=== PATIENT | female | born 1965 | race Two or more races ===

== ENCOUNTER 2017-06-05 21:24 | Emergency (ER) | payer OTHER ==
[~2017-06-05] VITALS: Ht 157.5 cm; Wt 55.5 kg
[~2017-06-05 21:24] MED LIST: CLON1TAB PO; GABA-585 PO; HYDROCONE; INDO25OR PO; MONT10TA9 PO; SIME125T17 PO; TOLT1TAB2 PO; hydrocodone
[2017-06-05 21:30] VITALS: BP 160/72
[2017-06-05] MEDS ORDERED: DEXAMETHASONE 4 MG TABLET PO ONE (23:00)
[2017-06-05] MEDS ORDERED: PROMETH/CODEINE 6.25/10MG 5 ML SYRUP. PO ONE (23:00)
[2017-06-05] MEDS ORDERED: DEXT15LI7 PO (23:28)
[2017-06-05] MEDS ORDERED: BENZ100C PO (23:28)
--- NOTE | 2017-06-05 23:29 | PHYS DOC ---
Past History Past Medical History: Anxiety, Depression, GERD Past Surgical History: Cholecystectomy, Hysterectomy Smoking: Non-smoker Alcohol Use: None Drug Use: None Adult General Chief Complaint Chief Complaint: COUGH HPI HPI Patient is a 52-year-old female who presents with complaints of nonproductive cough and shortness of breath that started when she had a coughing fit prior to arrival to the emergency department. Patient denies pain anywhere else. Patient may have had some sick contacts. Patient denies any fevers, rashes, chills, swelling. Review of Systems Review of Systems Constitutional: Denies fever or chills [] Eyes: Denies change in visual acuity, redness, or eye pain [] HENT: As per history of present illness Respiratory: As per history of present illness Cardiovascular: No chest pain GI: Denies abdominal pain, nausea, vomiting, Musculoskeletal: Denies back pain or joint pain [] Integument: Denies rash or skin lesions [] Neurologic: Denies headache, focal weakness or sensory changes [] All other systems were reviewed and found to be within normal limits, except as documented in this note. Current Medications Current Medications Current Medications Medications (Trade) Dose Ordered Sig/Tati Start Time Stop Time Status Last Admin Dose Admin Dexamethasone (Decadron) 8 mg 1X ONCE 06/05/17 23:00 06/05/17 23:01 DC 06/05/17 22:48 8 MG Promethazine HCl/ Codeine (Phenergan With Codeine) 5 ml 1X ONCE 06/05/17 23:00 06/05/17 23:01 DC 06/05/17 22:49 5 ML Allergies Allergies Allergies Coded Allergies Type Severity Reaction Last Updated Verified iodine Allergy Severe BLISTERS 10/14/15 Yes adhesive tape Allergy Intermediate Rash 12/01/15 Yes Penicillins Allergy Mild rash 11/01/13 No Physical Exam Physical Exam Constitutional: Well developed, well nourished, no acute distress, non-toxic appearance. [] HENT: Normocephalic, atraumatic, bilateral external ears normal, oropharynx moist, no oral exudates, nose normal. Airways patent, no drooling Eyes:EOMI, conjunctiva normal, no discharge. [] Neck: Normal range of motion, no tenderness, supple, no stridor. No LAD, no meningeal signs Cardiovascular:Heart rate regular rhythm, no murmur, normal perfusion Lungs & Thorax: Bilateral breath sounds clear to auscultation on no tachypnea, no rales, no rhonchi, no wheezing. Patient's sats 99% on room air is during examination Abdomen: Bowel sounds normal, soft, no tenderness, Skin: Warm, dry, no erythema, no rash. [] Back: No tenderness, no CVA tenderness. [] Extremities: No tenderness, no DVT, ROM intact, no edema. [] Neurologic: Alert and oriented X 3, normal motor function, normal speech, no focal deficits noted. [] Psychologic: Affect normal, judgement normal, mood normal. [] EKG EKG [] Radiology/Procedures Radiology/Procedures [] Course & Med Decision Making Course & Med Decision Making Pertinent Labs and Imaging studies reviewed. (See chart for details) Strep test negative [] Dragon Disclaimer Dragon Disclaimer This electronic medical record was generated, in whole or in part, using a voice recognition dictation system. Departure Departure: Impression: Primary Impression: Cough Additional Impression: Pharyngitis Disposition: 01 HOME, SELF-CARE Condition: STABLE Referrals: NATALIA CHEUNG (PCP) This follow with your doctor for recheck and reevaluation in 2-3 days Scripts Dextromethorphan Hbr (TUSSIN COUGH) 15 Mg/5 Ml Liquid 15 MG PO BID for 5 Days, LIQUID Prov: Angella GERARD MD 06/05/17 Benzonatate (TESSALON PERLE) 100 Mg Capsule 1 CAP PO TID, #21 CAP Prov: Angella GERARD MD 06/05/17 Problem Qualifiers Angella GERARD MD Jun 05, 2017 23:29
== END 2017-06-05 23:37 | disposition home or self-care (01) ==
LOC: ER 21:24
DX: J02.9 Acute pharyngitis, unspecified (principal); K21.9 Gastro-esophageal reflux disease without esophagitis; Z88.0 Allergy status to penicillin; Z88.8 Allergy status to other drugs, medicaments and biological substances; Z91.041 Radiographic dye allergy status
CPT/HCPCS: 87070; 87880; 99283; J8540